=== PATIENT | female | born 1985 | race Caucasian/White ===

== ENCOUNTER → 2020-11-11 | Outpatient (CLI) | payer SELFPAY ==
--- NOTE | 2020-11-11 17:02 | KCIC ---
EXAMINATION: US PELVIS W/TV, 11/11/2020 2:49 PM CLINICAL INDICATION: Abnormal uterine bleeding TECHNIQUE: Grayscale, color and spectral Doppler ultrasound images of the pelvis via transabdominal a nd transvaginal approach. COMPARISON: None. FINDINGS: The uterus measures 9.3 x 5.6 x 3.8 cm. The endometrial stripe measures 4 mm in thickness. No myometr ial mass. The right ovary measures 2.6 x 1.7 x 1.9 cm. The left ovary measures 2.5 x 2.0 x 1.7 cm. There is nor mal ovarian blood flow bilaterally. No adnexal mass or free fluid. IMPRESSION: Normal pelvic ultrasound. Electronically signed by: Gabriella Curry MD (11/11/2020 4:59 PM) [id number]
== END ==
LOC: KCIC US 14:43
PROVIDERS: ATTEND Family Medicine
DX: N93.9 Abnormal uterine and vaginal bleeding, unspecified (principal)
CPT/HCPCS: 76830; 76856